=== PATIENT | female | born 1990 | race African-American/Black ===

== ENCOUNTER 2022-07-25 09:38 | Emergency (ER) | payer MEDICAID ==
[~2022-07-25] VITALS: Ht 157.5 cm; Wt 68.2 kg
[2022-07-25] MEDS ORDERED: ALBU18HF12 IH (09:43)
[2022-07-25] MEDS ORDERED: KETOROLAC TROMETHAMINE 60 MG/2 ML VIAL IM ONE (11:45)
[2022-07-25] MEDS ORDERED: IBUP-1492 PO (12:26)
[2022-07-25 12:37] VITALS: BP 126/70
== END 2022-07-25 12:42 | disposition home or self-care (01) ==
LOC: EMS 09:58
DX: S13.4XXA Sprain of ligaments of cervical spine, initial encounter (principal); J45.909 Unspecified asthma, uncomplicated; F12.90 Cannabis use, unspecified, uncomplicated; X58.XXXA Exposure to other specified factors, initial encounter; Y93.72 Activity, wrestling; Y92.89 Other specified places as the place of occurrence of the external cause; Y99.8 Other external cause status
CPT/HCPCS: 99283; 96372; J1885